=== PATIENT | female | born 1985 ===

== ENCOUNTER 2021-11-23 01:08 | Emergency (ER) | payer MEDICAID ==
[~2021-11-23] VITALS: Ht 165.1 cm; Wt 72.6 kg
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
== END 2021-11-23 03:10 | disposition home or self-care (01) ==
LOC: ED 01:08
DX: R51.9 Headache, unspecified (principal); J45.909 Unspecified asthma, uncomplicated
CPT/HCPCS: 96374; 96375; 99283-25; J1200; J1885; J2765; J7030